=== PATIENT | female | born 1945 | race Caucasian/White ===

== ENCOUNTER 2018-12-30 08:39 | Day surgery (SDC) | payer MEDICARE ==
[2018-12-28 12:59] LABS: EOSINOPHILS % (AUTO) 3.7 % (0.0-8.0); HEMATOCRIT 42.1 % (36-48); LYMPHOCYTES % (AUTO) 23.7 % (21.0-51.0); MEAN CORPUSCULAR HEMOGLOBIN 31.8 pg (27.0-33.0); MEAN CORPUSCULAR HGB CONC 33.5 g/dL (32.0-36.0); MEAN CORPUSCULAR VOLUME 95.2 fL (79-99); MONOCYTES % (AUTO) 7.8 % (3.0-13.0); NEUTROPHILS % (AUTO) 63.8 % (40.0-77.0); NUCLEATED RED BLOOD CELLS 0.1 % (0.0-0.19); PLATELET COUNT (AUTO) 297 K/uL (130-400); RED BLOOD CELL COUNT(AUTO) 4.42 MIL/uL (4.00-5.50); RED CELL DISTRIBUTION WIDTH 14.1 % (11.0-15.5); WHITE BLOOD COUNT (AUTO) 5.9 K/uL (4.8-10.8)
[2018-12-28 13:06] LABS: CREATININE 1.6 mg/dL (0.5-1.5); POTASSIUM 4.5 mmol/L (3.5-5.1)
[2018-12-28 13:12] LABS: INR 1.11 (0.85-1.15); PARTIAL THROMBOPLASTIN TIME 30.7 SEC (26.3-35.5); PROTHROMBIN TIME 11.6 SEC (9.6-11.6)
[2018-12-28 13:15] VITALS: BP 109/51
--- NOTE | 2018-12-29 13:29 | NUR ---
labs abnormal labs reported to Ian GOEL, NO further orders given
[~2018-12-30] VITALS: Ht 160 cm; Wt 83.7 kg
[~2018-12-30 08:39] MED LIST: APIX5TAB PO; FURO20TA4 PO; METO-391 PO; PROP150T28 PO; ROPI1TAB11 PO; ROSU20TA31 PO
[2018-12-30] MEDS ORDERED: SODIUM CHLORIDE 0.9% 1000ML 1,000 ML IV ONE (09:06)
[2018-12-30 09:36] VITALS: BP 127/79
--- NOTE | 2018-12-30 09:45 | NUR ---
PROCEDURE PT HERE FOR PROCEDURE. EKG TAKEN. AFIB. DENIES ANY PAIN. FRIEND AT BEDSIDE.
[2018-12-30] MEDS ORDERED: FLUMAZENIL 0.1MG/1ML 5ML VIAL IV ONE (12:20)
[2018-12-30] MEDS ORDERED: MIDAZOLAM HCL 1 MG/ML 2ML VIAL ONE (12:21)
[2018-12-30] MEDS ORDERED: FENTANYL CITRATE PF 50 MCG/1 ML 2ML VIAL ONE (12:21)
[2018-12-30] MEDS ORDERED: NALOXONE HCL 0.4 MG/1 ML ML ONE (12:22)
--- NOTE | 2018-12-30 13:10 | NUR ---
CARDIOVERSION DR. CUI HERE FOR CARDIOVERSION ALONG WITH AMANDO BILLS. Yvonne CHAN RN and MYSELF IN ROOM. TIME OUT WAS PERFORMED AND CARDIOVERSION WAS PERFORMED WITH FIRST SHOCK DELIVERED BY DR. CUI AT 100JOULES. UNSUCCESSFUL. SECOND SHOCK DELIVERED AT 150 JOULES. SUCCESSFUL. PT IN SINUS RHYTHM. PT TOLERATED PROCEDURE WELL.
[2018-12-30 14:30] VITALS: BP 122/74
--- NOTE | 2018-12-30 14:30 | NUR ---
DISCHARGE ORAL AND WRITTEN DISCHARGE INSTRUCTIONS GIVEN TO PT AND PTS FRIEND. POT FEELS WELL. DENIES ANY PAIN, DISCOMFORT. NO OTHER QUESTIONS AT THIS TIME.
[2018-12-30 14:45] VITALS: BP 126/72
== END 2018-12-30 15:00 | disposition home or self-care (01) ==
LOC: DAH 08:39
PROVIDERS: ATTEND Internal Medicine Cardiovascular Disease
DX: I48.19 Other persistent atrial fibrillation (principal); E78.5 Hyperlipidemia, unspecified; Z88.0 Allergy status to penicillin; Z91.040 Latex allergy status; Z88.8 Allergy status to other drugs, medicaments and biological substances; Z79.01 Long term (current) use of anticoagulants; Z79.899 Other long term (current) drug therapy; Z96.649 Presence of unspecified artificial hip joint; Z87.891 Personal history of nicotine dependence; Z82.49 Family history of ischemic heart disease and other diseases of the circulatory system; Z82.5 Family history of asthma and other chronic lower respiratory diseases
CPT/HCPCS: 36415; 80048; 82948; 85025; 85610; 85730; 92960; 93005 ×2; A4215; A4216; A4221; A4222; A4223 ×3; A4606; A4615; J2250; J3010; J7030; 99152; J2310; J3490

== ENCOUNTER 2019-03-25 06:00 | Day surgery (SDC) | payer MEDICARE ==
[2019-03-23 09:09] VITALS: BP 123/75
[2019-03-23 09:11] LABS: BASOPHILS % (AUTO) 0.6 % (0.0-5.0); EOSINOPHILS % (AUTO) 2.8 % (0.0-8.0); LYMPHOCYTES % (AUTO) 24.1 % (21.0-51.0); MEAN CORPUSCULAR HEMOGLOBIN 30.3 pg (27.0-33.0); MEAN CORPUSCULAR HGB CONC 32.3 g/dL (32.0-36.0); MEAN CORPUSCULAR VOLUME 93.8 fL (79-99); MONOCYTES % (AUTO) 6.8 % (3.0-13.0); NEUTROPHILS % (AUTO) 65.4 % (40.0-77.0); PLATELET COUNT (AUTO) 255 K/uL (130-400); RED BLOOD CELL COUNT(AUTO) 5.01 MIL/uL (4.00-5.50); RED CELL DISTRIBUTION WIDTH 15.5 % (11.0-15.5); WHITE BLOOD COUNT (AUTO) 6.8 K/uL (4.8-10.8)
[2019-03-23 09:21] LABS: CREATININE 1.4 mg/dL (0.5-1.5); POTASSIUM 4.8 mmol/L (3.5-5.1)
[2019-03-23 09:23] LABS: INR 1.02 (0.85-1.15); PARTIAL THROMBOPLASTIN TIME 30.2 SEC (26.3-35.5); PROTHROMBIN TIME 10.7 SEC (9.6-11.6)
[2019-03-25] VITALS (8 sets, daily range): BP systolic 98–136; BP diastolic 41–74
[~2019-03-25] VITALS: Ht 160 cm; Wt 85.1 kg
[~2019-03-25 06:00] MED LIST changes: +CALC600T12 PO; +MAGN400T40 PO; +MVI PO; +OMEG-148 PO; +SODIUM CHLORIDE 0.9% 1000ML 1,000 ML IV SCH; +VITAMIN B12 PO
--- NOTE | 2019-03-25 06:10 | NUR ---
PATIENT ARRIVED TO DAY PATIENT ACCOMPANIED BY HERSELF. PATIENT STATES THAT HER FRIEND, MAIRA, WILL BE PICKING HER UP AFTER THE PROCEDURE. PATIENT AAOX3, RESPIRATIONS UNLABORED, VITAL SIGNS STABLE. PATIENT DENIES ANY PAIN AT THIS TIME. PROCEDURE VERIFIED/CONFIRMED WITH PATIENT, HOSPITAL ROUTINE EXPLAINED. PATIENT VERBALIZED UNDERSTANDING.
[2019-03-25] MEDS ORDERED: MIDAZOLAM HCL 1 MG/ML 2ML VIAL ONE ×2 (07:17→08:33)
[2019-03-25] MEDS ORDERED: HEPARIN SODIUM 1000UNIT/ML 10ML VIAL ONE (07:17)
[2019-03-25] MEDS ORDERED: MEPERIDINE-PF 25 MG/ML SYG ONE ×2 (07:18→08:33)
[2019-03-25] MEDS ORDERED: LIDOCAINE HCL 2% 20ML ONE (07:18)
--- NOTE | 2019-03-25 07:25 | NUR ---
PATIENT TRANSFERRED TO [facility] VIA BED BY SVETA PETERSEN AND SVETA GATES.
--- NOTE | 2019-03-25 12:51 | NUR ---
DISCHARGE INSTRUCTIONS PROVIDED TO PATIENT AND PATIENT'S FRIEND (MAIRA). FOLLOW UP APPOINTMENT PROVIDED. INSTRUCTED THAT PATIENT MUST START TAKING ELIQUIS TONIGHT, BOTH PATIENT AND PATIENT'S FRIEND VERBALIZED UNDERSTANDING. HANDOUTS/INSTRUCTIONS PROVIDED ON FEMORAL SITE CARE, BOTH VERBALIZED UNDERSTANDING.
--- NOTE | 2019-03-25 13:20 | NUR ---
PATIENT DISCHARGED FROM FACILITY VIA WHEELCHAIR BY NURSE. PATIENT ASSISTED INTO PRIVATE VEHICLE DRIVEN BY FRIEND.
== END 2019-03-25 13:20 | disposition home or self-care (01) ==
LOC: DAH 06:00
PROVIDERS: ATTEND Internal Medicine Cardiovascular Disease
DX: I48.92 Unspecified atrial flutter (principal); I48.19 Other persistent atrial fibrillation; E78.5 Hyperlipidemia, unspecified; Z88.0 Allergy status to penicillin; Z79.899 Other long term (current) drug therapy; Z98.890 Other specified postprocedural states; Z82.49 Family history of ischemic heart disease and other diseases of the circulatory system
CPT/HCPCS: 36415; 80048; 85025; 85610; 85730; 93005; 93613; 93621; 93653; A4215 ×2; A4216 ×2; A4221 ×2; A4222 ×2; A4223 ×6; A4606 ×2; A4649 ×2; A4663 ×2; C1730; C1732; C1894 ×2; J1644 ×2; J2175 ×2; J2250 ×2; J3490; J7030; 99156; 99157